=== PATIENT | female | born 1975 | race African-American/Black ===

== ENCOUNTER 2017-12-16 23:59 | Emergency (ER) | payer OTHER ==
[2017-12-17 00:22] VITALS: BMI 34.2
--- NOTE | 2017-12-17 00:23 | PDOC ---
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 The patient states the symptoms presented 1 day prior following the intake of steak and later on Mongolian food. The patient report having episodes of nonbilious-bloody vomiting. The patient reports an additional complaint of loose stool, denies diarrhea, dysuria, fever, chills, vaginal bleeding or discharge, or fluid loose. The patient reports having a cerclage done at [facility] 2 weeks prior, states the procedure was done on the inside. The patient reports an additional concern of an occasional cough, indicates its secondary to her asthma, patient reports being noncompliant inhalers. Allergies: tetracycline Social history: No past or present use of tobacco, alcohol or recreational drug use reported. Surgical history: Cerclage (2 weeks ago @ [facility]) PCP: Jenni Hassan MD <Awa Leon - Last Filed: 12/17/17 01:13> <Liliana Zavaleta - Last Filed: 12/17/17 02:20> - General Chief Complaint: Pain Stated Complaint: 16 WEEKS /ABD PAIN Time Seen by Provider: 12/17/17 00:23 Past History <Awa Leon - Last Filed: 12/17/17 01:13> - Past Medical History Asthma: Yes Cardiac Disorders: No COPD: No DVT: No Diabetes: No HTN: No Hypercholesterolemia: Yes - Immunization History Immunization Up to Date: Yes - Suicide/Smoking/Psychosocial Hx Smoking History: Never smoked Have you smoked in the past 12 months: No Information on smoking cessation initiated: No Hx Alcohol Use: No Drug/Substance Use Hx: No <Liliana Zavaleta - Last Filed: 12/17/17 02:20> - Past Medical History Allergies/Adverse Reactions: Allergies Allergy/AdvReac Type Severity Reaction Status Date / Time tetracycline AdvReac Intermediate Verified 12/17/17 01:03 Home Medications: Ambulatory Orders NK [No Known Home Medication] 11/03/17 Review of Systems - Review of Systems Able to Perform ROS?: Yes Comments:: 12/17/17 00:54 GENERAL/CONSTITUTIONAL: No fever or chills. No weakness. HEAD, EYES, EARS, NOSE AND THROAT: No change in vision. No ear pain or discharge. No sore throat. CARDIOVASCULAR: No chest pain or shortness of breath. RESPIRATORY: (+) cough. No wheezing, or hemoptysis. GASTROINTESTINAL: (+) R. flank pain that radiates to the lower abdomen. (+) Nausea and vomiting. No diarrhea or constipation. GENITOURINARY: No dysuria, frequency, or change in urination. MUSCULOSKELETAL: No joint or muscle swelling or pain. No neck or back pain. SKIN: No rash NEUROLOGIC: No headache, vertigo, loss of consciousness, or change in strength/ sensation. ENDOCRINE: No increased thirst. No abnormal weight change. HEMATOLOGIC/LYMPHATIC: No anemia, easy bleeding, or history of blood clots. ALLERGIC/IMMUNOLOGIC: No hives or skin allergy. <Awa Leon - Last Filed: 12/17/17 01:13> *Physical Exam - Vital Signs Last Vital Signs Temp Pulse Resp BP Pulse Ox 98.8 F 100 H 18 140/69 99 12/17/17 00:13 12/17/17 00:13 12/17/17 00:13 12/17/17 00:13 12/17/17 00:13 - Physical Exam Comments: 12/17/17 00:54 GENERAL: Little disheveled appearing. Awake, alert, and fully oriented, in no acute distress HEAD: No signs of trauma EYES: PERRLA, EOMI, sclera anicteric, conjunctiva clear ENT: Auricles normal inspection, hearing grossly normal, nares patent, oropharynx clear without exudates. Moist mucosa NECK: Normal ROM, supple, no lymphadenopathy, JVD, or masses LUNGS: Breath sounds equal, clear to auscultation bilaterally. No wheezes, and no crackles HEART: (+) Tackycardic. normal S1 and S2, no murmurs, rubs or gallops ABDOMEN: Gravid below the umbilicus. Obese. Soft, nontender, normoactive bowel sounds. No guarding, no rebound. No masses EXTREMITIES: No edema in the legs. Normal range of motion, no edema. No clubbing or cyanosis. No cords, erythema, or tenderness NEUROLOGICAL: Cranial nerves II through XII grossly intact. Normal speech. SKIN: Warm, Dry, normal turgor, no rashes or lesions noted. <Awa Leon - Last Filed: 12/17/17 01:13> - Vital Signs Last Vital Signs Temp Pulse Resp BP Pulse Ox 98.8 F 100 H 18 140/69 99 12/17/17 00:13 12/17/17 00:13 12/17/17 00:13 12/17/17 00:13 12/17/17 00:13 <Liliana Zavaleta - Last Filed: 12/17/17 02:20> ED Treatment Course - LABORATORY CBC & Chemistry Diagram: 12/17/17 01:45 12/17/17 01:45 <Liliana Zavaleta - Last Filed: 12/17/17 02:20> Medical Decision Making - Medical Decision Making 12/17/17 00:41 a/p: 42yo female with n/v since yesterday after eating steak and then taiwanese food -pt is 2 weeks s/p cerclage placement at [facility] -pt states abd cramping assoc with n/v -no diarrhea -pt is around 16 weeks preg -pt denies vag bleeding/loss of fluid/urinary complaints -no f/c -suspect gastroenteritis -will send labs, ua, ob ultrasound -will give ivf hydration, zofran -will monitor and reassess 12/17/17 01:33 OB ultrasound: cervix 4.5cm in length, IUP at 16weeks 5 days, FHR 133, normal amniotic fluid, anterior placenta without previa or abruption 12/17/17 01:45 pt updated on the ultrasound results 12/17/17 02:19 pt pending labs - signed out to the oncoming ED physician pending further eval and a po challenge <Liliana Zavaleta - Last Filed: 12/17/17 02:20> *DC/Admit/Observation/Transfer - Attestations Scribe Attestion: 12/17/17 00:55 Documentation prepared by Awa Leon, acting as manager medical writing for Liliana Zavaleta DO. <Awa Leon - Last Filed: 12/17/17 01:13> - Discharge Dispostion Decision to Admit order: No - Attestations Physician Attestion: 12/17/17 02:20 I, Dr. Liliana Zavaleta, DO, attest that this document has been prepared under my direction and personally reviewed by me in its entirety. I further attest, that it accurately reflects all work, treatment, procedures and medical decision -making performed by me. <Liliana Zavaleta - Last Filed: 12/17/17 02:20> Diagnosis at time of Disposition: Nausea and vomiting during - Discharge Dispostion Condition at time of disposition: Stable - Referrals Referrals: Jenni Mckeon MD [Primary Care Provider] - - Patient Instructions - Post Discharge Activity
[2017-12-17] MEDS ORDERED: ONDANSETRON 4 MG/2 ML VIAL IVPUSH ONE (00:39)
[2017-12-17] MEDS ORDERED: SODIUM CHLORIDE 0.9% 1000 ML INFUS.BAG IV ONE (00:39)
[2017-12-17] MEDS ORDERED: ONDANSETRON 4 MG/2 ML VIAL ONE (01:46)
[2017-12-17 01:51] LABS: BASO % 1.5 % (0-2.0); EOS % 1.2 % (0-4.5); HEMOGLOBIN 10.3 GM/dL (10.7-15.3); LYMPH % 24.3 % (8-40); MCH 32.7 pg (25.7-33.7); MCHC 34.4 g/dl (32.0-36.0); MEAN CELL VOLUME 95.1 fl (80-96); MONO % 5.8 % (3.8-10.2); NEUT % 67.2 % (42.8-82.8); PLATELET COUNT 222 K/MM3 (134-434); RBC 3.16 M/mm3 (3.60-5.2); RDW 13.7 % (11.6-15.6); WHITE BLOOD COUNT 11.4 K/mm3 (4.0-10.0)
[2017-12-17 02:13] LABS: ALBUMIN 3.1 g/dl (3.4-5.0); ALK PHOS 56 U/L (45-117); ANION GAP 8 MMOL/L (8-16); BILIRUBIN,TOTAL 0.4 mg/dL (0.2-1); BLOOD UREA NITROGEN 13 mg/dL (7-18); CALCIUM 8.7 mg/dL (8.5-10.1); CHLORIDE 109 mmol/L (98-107); CO2 21 mmol/L (21-32); CREATININE 0.5 mg/dL (0.55-1.3); GLUCOSE,RANDOM 76 mg/dL (74-106); POTASSIUM 3.6 mmol/L (3.5-5.1); SGOT/AST 15 U/L (15-37); SGPT/ALT 14 U/L (13-61); SODIUM 139 mmol/L (136-145); TOT PROT 6.4 g/dl (6.4-8.2)
[2017-12-17 02:32] LABS: URINE APPEARANCE CLEAR; URINE BILIRUBIN NEGATIVE (<2.0 mg/dL); URINE COLOR STRAW; URINE GLUCOSE (UA) NEGATIVE (NEGATIVE); URINE KETONE TRACE (NEGATIVE); URINE LEUK ESTERASE NEGATIVE (NEGATIVE); URINE NITRITE NEGATIVE (NEGATIVE); URINE PROTEIN NEGATIVE (NEGATIVE); URINE UROBILINOGEN NEGATIVE mg/dL (0.2-1.0)
--- NOTE | 2017-12-17 03:13 | PDOC ---
*Physical Exam - Vital Signs Last Vital Signs Temp Pulse Resp BP Pulse Ox 98.8 F 100 H 18 140/69 99 12/17/17 00:13 12/17/17 00:13 12/17/17 00:13 12/17/17 00:13 12/17/17 00:13 ED Treatment Course - LABORATORY CBC & Chemistry Diagram: 12/17/17 01:45 12/17/17 01:45 - ADDITIONAL ORDERS Additional order review: Laboratory Results 12/17/17 12/17/17 02:15 01:45 Sodium 139 Potassium 3.6 Chloride 109 H Carbon Dioxide 21 Anion Gap 8 BUN 13 Creatinine 0.5 L Creat Clearance w eGFR > 60 Random Glucose 76 Calcium 8.7 Total Bilirubin 0.4 AST 15 ALT 14 Alkaline Phosphatase 56 Total Protein 6.4 Albumin 3.1 L Urine Color Straw Urine Appearance Clear Urine pH 5.0 Ur Specific [place] 1.010 Urine Protein Negative Urine Glucose (UA) Negative Urine Ketones Trace H Urine Blood Negative Urine Nitrite Negative Urine Bilirubin Negative Urine Urobilinogen Negative Ur Leukocyte Esterase Negative 12/17/17 01:45 RBC 3.16 L MCV 95.1 MCHC 34.4 RDW 13.7 MPV 9.0 Neutrophils % 67.2 D Lymphocytes % 24.3 D Monocytes % 5.8 Eosinophils % 1.2 Basophils % 1.5 D - Medications Given in the ED: ED Medications Discontinued Medications Generic Name Dose Route Start Last Admin Trade Name Freq PRN Reason Stop Dose Admin Ondansetron HCl 4 mg 12/17/17 00:39 12/17/17 01:51 Zofran Injection IVPUSH 12/17/17 00:40 4 mg ONCE ONE Administration Sodium Chloride 1,000 ml 12/17/17 00:39 12/17/17 01:51 Normal Saline - IV 12/17/17 00:40 1,000 ml ONCE ONE Administration Medical Decision Making - Medical Decision Making 12/17/17 03:08 42yo female with n/v since yesterday after eating steak and then wolof food. - OB US unremarkable - Labs wnl, UA negative Pt reassessed - passed PO challenge - ate several crackers and juice without vomiting. Pt states she feels much better now, would like to go home. Initial BP slightly elevated 140 systolic, repeat vitals improved. Pt is well appearing, with normal vitals. Clinically stable for DC at this time. I discussed the physical exam findings, ancillary test results and final diagnoses with the patient. I answered all of the patient's questions. The patient was satisfied with the care received and felt comfortable with the discharge plan and treatment plan. The patient agrees to follow up with the primary care physician within 24-72 hours. *DC/Admit/Observation/Transfer Diagnosis at time of Disposition: Nausea and vomiting during - Discharge Dispostion Disposition: HOME Condition at time of disposition: Stable - Referrals Referrals: Jenni Mckeon MD [Primary Care Provider] - - Patient Instructions Printed Discharge Instructions: Nausea and Vomiting-Adult Additional Instructions: Drink plenty of fluids to stay hydrated. Follow up with your OB at [facility] this week. If you experience worsening nausea, vomiting, diarrhea, abdominal pain, fevers, or any other concerning symptoms, return to the ER immediately. - Post Discharge Activity - Attestations Physician Attestion: 12/17/17 03:13 I, Dr. Marlon Joshua MD, attest that this document has been prepared under my direction and personally reviewed by me in its entirety. I further attest, that it accurately reflects all work, treatment, procedures and medical decision -making performed by me.
[2017-12-17 03:29] VITALS: BP 103/55; PULSE 98; TEMP 98.7
== END 2017-12-17 04:33 | disposition home or self-care (01) ==
LOC: JER 23:59
PROC: 3E033GC Introduction of Other Therapeutic Substance into Peripheral Vein, Percutaneous Approach (ICD-10-PCS; principal; 2017-12-16)
DX: O26.892 Other specified pregnancy related conditions, second trimester (principal); R11.2 Nausea with vomiting, unspecified; R10.31 Right lower quadrant pain; Z3A.16 16 weeks gestation of pregnancy
CPT/HCPCS: 36415; 76815; 80053; 81003; 85025; 99282-25; J7030

== ENCOUNTER 2017-12-19 07:37 | Emergency (ER) | payer OTHER ==
[2017-12-19 07:57] VITALS: BMI 33.8
[2017-12-19] MEDS ORDERED: ACETAMINOPHEN 1000 MG/100 ML VIAL (NON FORMULARY) IVPB ONE (08:50)
[2017-12-19 09:01] LABS: BASO % 0.8 % (0-2.0); EOS % 1.4 % (0-4.5); HEMATOCRIT 31.4 % (32.4-45.2); HEMOGLOBIN 10.8 GM/dL (10.7-15.3); MCH 32.9 pg (25.7-33.7); MCHC 34.5 g/dl (32.0-36.0); MEAN CELL VOLUME 95.5 fl (80-96); MEAN PLT VOLUME 9.2 fl (7.5-11.1); MONO % 5.8 % (3.8-10.2); PLATELET COUNT 217 K/MM3 (134-434); RBC 3.29 M/mm3 (3.60-5.2); RDW 13.6 % (11.6-15.6); WHITE BLOOD COUNT 10.1 K/mm3 (4.0-10.0)
[2017-12-19] MEDS ORDERED: ACETAMINOPHEN 325 MG TABLET (FP) ONE (09:01)
[2017-12-19] MEDS ORDERED: ACETAMINOPHEN INJECTION 100 ML IVPB ONE (09:04)
[2017-12-19 09:05] LABS: URINE APPEARANCE CLEAR; URINE BILIRUBIN NEGATIVE (<2.0 mg/dL); URINE COLOR STRAW; URINE GLUCOSE (UA) NEGATIVE (NEGATIVE); URINE KETONE TRACE (NEGATIVE); URINE LEUK ESTERASE NEGATIVE (NEGATIVE); URINE NITRITE NEGATIVE (NEGATIVE); URINE PROTEIN NEGATIVE (NEGATIVE); URINE UROBILINOGEN NEGATIVE mg/dL (0.2-1.0)
[2017-12-19] MEDS ORDERED: METOCLOPRAMIDE HCL INJECTION 10 MG/2 ML VIAL IVPUSH ONE (09:14)
[2017-12-19] MEDS ORDERED: METOCLOPRAMIDE HCL INJECTION 10 MG/2 ML VIAL ONE (09:15)
[2017-12-19] MEDS ORDERED: SODIUM CHLORIDE 0.9% 500 ML INFUS.BAG IV ONE (09:24)
[2017-12-19 09:31] LABS: ALBUMIN 3.2 g/dl (3.4-5.0); ALK PHOS 55 U/L (45-117); ANION GAP 9 MMOL/L (8-16); BILIRUBIN,TOTAL 0.2 mg/dL (0.2-1); BLOOD UREA NITROGEN 11 mg/dL (7-18); CALCIUM 9.4 mg/dL (8.5-10.1); CHLORIDE 108 mmol/L (98-107); CO2 22 mmol/L (21-32); CREATININE 0.6 mg/dL (0.55-1.3); GLUCOSE,RANDOM 90 mg/dL (74-106); POTASSIUM 3.4 mmol/L (3.5-5.1); SGOT/AST 13 U/L (15-37); SGPT/ALT 13 U/L (13-61); SODIUM 139 mmol/L (136-145); TOT PROT 6.4 g/dl (6.4-8.2)
[2017-12-19] MEDS ORDERED: POTASSIUM CHLORIDE TABS 20 MEQ TABLET.ER (FP) PO ONE ×2 (10:11→10:44)
--- NOTE | 2017-12-19 10:20 | PDOC ---
History of Present Illness - General History Source: Patient Exam Limitations: No Limitations - History of Present Illness Initial Comments: 12/19/17 10:28 Ms. 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 The patient states around 7:00 am today, the patient was voiding when she had a single episode of watery discharge, denies seeing blood. The patient states the discharge was similar to prior water breaks. The patient states following the episode, the patient started to have pain to the lower abdomen, states she felt a shift in her uterus, states the pain dull is quality with a 7/10 severity. The patient reports associated symptoms of nausea and several episodes of nonbilious-bloody emesis. The patient reports an additional complaint of white discharge from the vagina, denies itchiness. Patient denies this episode is similar to prior miscarriages. Denies contraction. Patient states she is compliant with her medication. Allergies: tetracycline Social history: No past or present use of tobacco, alcohol or recreational drug use reported. Surgical history: Cerclage (2 weeks ago @ [facility]) PCP: Jenni Hassan MD [facility]: Dr. Adama Sanchez MD. <Awa Leon - Last Filed: 12/19/17 10:28> - General History Source: Patient Exam Limitations: No Limitations <Leona Gonzalez - Last Filed: 12/19/17 12:02> - General Chief Complaint: Pain Stated Complaint: MISCARRIAGE Time Seen by Provider: 12/19/17 08:42 Past History <Awa Leon - Last Filed: 12/19/17 10:28> - Past Medical History Asthma: Yes Cardiac Disorders: No COPD: No DVT: No Diabetes: No HTN: No Hypercholesterolemia: Yes - Reproductive History Is Patient Now?: No (#): 13 Para: 2 Therapeutic (s) & number: No - Immunization History Immunization Up to Date: Yes - Suicide/Smoking/Psychosocial Hx Smoking History: Never smoked Have you smoked in the past 12 months: No Number of Cigarettes Smoked Daily: 10 Information on smoking cessation initiated: No Hx Alcohol Use: No Drug/Substance Use Hx: No Substance Use Type: None <LisaLeona Candie - Last Filed: 12/19/17 12:02> - Past Medical History Allergies/Adverse Reactions: Allergies Allergy/AdvReac Type Severity Reaction Status Date / Time tetracycline AdvReac Intermediate Verified 12/19/17 07:39 Home Medications: Ambulatory Orders Doxylamine Succinate/Vit B6 [[place]andy [place] 10-10 mg Tablet] 1 each PO DAILY PRN # 15 tablet. 12/19/17 Review of Systems - Review of Systems Able to Perform ROS?: Yes Comments:: 12/19/17 10:28 GENERAL/CONSTITUTIONAL: No fever or chills. No weakness. no sweats. HEAD, EYES, EARS, NOSE AND THROAT: No congestion. CARDIOVASCULAR: No chest pain or palpitations, syncope or edema. RESPIRATORY: No SOB, cough GASTROINTESTINAL (+) nausea and vomiting. (+) abdominal pain. No diarrhea or constipation. No bloody stools. GENITOURINARY: (+)Vaginal discharge. No VB. no vaginal itch. No hematuria, dysuria, frequency, urgency or other changes. MUSCULOSKELETAL: No joint or muscle swelling or pain. No neck or back pain. SKIN: No rash or changes in skin color or lesions. NEUROLOGIC: No headache, vertigo, loss of consciousness. HEMATOLOGIC/LYMPHATIC: No anemia, easy bruising/bleeding, or history of blood clots. ALLERGIC/IMMUNOLOGIC: No allergies All other systems reviewed and negative, or as documented in HPI. <Awa Leon - Last Filed: 12/19/17 10:28> *Physical Exam - Vital Signs Last Vital Signs Temp Pulse Resp BP Pulse Ox 98.6 F 82 20 132/68 100 12/19/17 07:40 12/19/17 09:26 12/19/17 09:26 12/19/17 09:26 12/19/17 09:26 - Physical Exam Comments: 12/19/17 10:29 General: Well appearing, awake and alert, NAD. HEENT: NCAT, PERRL, EOMI, clear conjunctiva, anicteric, moist mucus membranes, clear oropharynx, no oral lesions.. Neck: neck supple, FROM Resp: CTAB, normal and even respirations, no respiratory distress CVS: RRR, no murmurs, 2+ peripheral pulses throughout, no peripheral edema Abdomen: (+) Diffuse tenderness. Gravid abdomen. soft, no peritoneal signs. Female : (+)Gravid Uterus. Cervix is smooth and soft, pink with cerclage in view. Moderate clear discharge in vaginal vault. Soft cervix to palpation, closed os. Back: nontender, normal inspection and ROM. no CVAT MSK: no edema, SERRANO x4, ROM intact. No clubbing or cyanosis. normal bulk and tone. Neuro: alert, oriented appropriately Skin: warm and well perfused, cap refill <2 sec, normal color <Awa Leon - Last Filed: 12/19/17 10:28> - Vital Signs Last Vital Signs Temp Pulse Resp BP Pulse Ox 98.6 F 82 20 132/68 100 12/19/17 07:40 12/19/17 09:26 12/19/17 09:26 12/19/17 09:26 12/19/17 09:26 <Leona Gonzalez - Last Filed: 12/19/17 12:02> ED Treatment Course - LABORATORY CBC & Chemistry Diagram: 12/19/17 08:39 12/19/17 08:39 - ADDITIONAL ORDERS Additional order review: Laboratory Results 12/19/17 12/19/17 12/19/17 08:47 08:39 08:39 Sodium Potassium Chloride Carbon Dioxide Anion Gap BUN Creatinine Creat Clearance w eGFR Random Glucose Calcium Total Bilirubin AST ALT Alkaline Phosphatase Total Protein Albumin Beta HCG, Quant 80867.9 Urine Color Straw Urine Appearance Clear Urine pH 6.0 Ur Specific [place] 1.006 Urine Protein Negative Urine Glucose (UA) Negative Urine Ketones Trace H Urine Blood Negative Urine Nitrite Negative Urine Bilirubin Negative Urine Urobilinogen Negative Ur Leukocyte Esterase Negative Blood Type B NEGATIVE Antibody Screen Positive H 12/19/17 08:39 Sodium 139 Potassium 3.4 L Chloride 108 H Carbon Dioxide 22 Anion Gap 9 BUN 11 Creatinine 0.6 Creat Clearance w eGFR > 60 Random Glucose 90 Calcium 9.4 Total Bilirubin 0.2 AST 13 L ALT 13 Alkaline Phosphatase 55 Total Protein 6.4 Albumin 3.2 L Beta HCG, Quant Urine Color Urine Appearance Urine pH Ur Specific [place] Urine Protein Urine Glucose (UA) Urine Ketones Urine Blood Urine Nitrite Urine Bilirubin Urine Urobilinogen Ur Leukocyte Esterase Blood Type Antibody Screen 12/19/17 08:39 RBC 3.29 L MCV 95.5 MCHC 34.5 RDW 13.6 MPV 9.2 Neutrophils % 64.0 Lymphocytes % 28.0 Monocytes % 5.8 Eosinophils % 1.4 Basophils % 0.8 - Medications Given in the ED: ED Medications Discontinued Medications Generic Name Dose Route Start Last Admin Trade Name Olman PRN Reason Stop Dose Admin Acetaminophen 1,000 mg 12/19/17 08:50 12/19/17 09:05 Ofirmev Injection - IVPB 12/19/17 08:51 1,000 mg ONCE ONE Administration Metoclopramide HCl 10 mg 12/19/17 09:14 12/19/17 09:21 Reglan Injection - IVPUSH 12/19/17 09:15 10 mg ONCE ONE Administration Sodium Chloride 1,000 ml 12/19/17 09:24 12/19/17 09:20 Normal Saline - IV 12/19/17 09:25 1,000 ml ONCE ONE Administration <Awa Leon - Last Filed: 12/19/17 10:28> - LABORATORY CBC & Chemistry Diagram: 12/19/17 08:39 12/19/17 08:39 - ADDITIONAL ORDERS Additional order review: Laboratory Results 12/19/17 12/19/17 12/19/17 08:47 08:39 08:39 Sodium 139 Potassium 3.4 L Chloride 108 H Carbon Dioxide 22 Anion Gap 9 BUN 11 Creatinine 0.6 Creat Clearance w eGFR > 60 Random Glucose 90 Calcium 9.4 Total Bilirubin 0.2 AST 13 L ALT 13 Alkaline Phosphatase 55 Total Protein 6.4 Albumin 3.2 L Urine Color Straw Urine Appearance Clear Urine pH 6.0 Ur Specific [place] 1.006 Urine Protein Negative Urine Glucose (UA) Negative Urine Ketones Trace H Urine Blood Negative Urine Nitrite Negative Urine Bilirubin Negative Urine Urobilinogen Negative Ur Leukocyte Esterase Negative Blood Type B NEGATIVE Antibody Screen Positive H 12/19/17 08:39 RBC 3.29 L MCV 95.5 MCHC 34.5 RDW 13.6 MPV 9.2 Neutrophils % 64.0 Lymphocytes % 28.0 Monocytes % 5.8 Eosinophils % 1.4 Basophils % 0.8 - RADIOLOGY Radiology Studies Ordered: Category Date Time Status TRANSVAGINAL US PREG [US] Stat Ultrasound 12/19/17 09:03 Ordered - Medications Given in the ED: ED Medications Discontinued Medications Generic Name Dose Route Start Last Admin Trade Name Olman PRN Reason Stop Dose Admin Acetaminophen 1,000 mg 12/19/17 08:50 12/19/17 09:05 Ofirmev Injection - IVPB 12/19/17 08:51 1,000 mg ONCE ONE Administration Metoclopramide HCl 10 mg 12/19/17 09:14 12/19/17 09:21 Reglan Injection - IVPUSH 12/19/17 09:15 10 mg ONCE ONE Administration Sodium Chloride 1,000 ml 12/19/17 09:24 12/19/17 09:20 Normal Saline - IV 12/19/17 09:25 1,000 ml ONCE ONE Administration <GonzalezLeona Lisapatoluna - Last Filed: 12/19/17 12:02> Medical Decision Making - Medical Decision Making 12/19/17 11:51 Anthony 42 YOF currently, 5 months , A(5 abortions, 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 cerclage placed 2 weeks ago with her OB at [facility].. vitals wnl. no fever, reassuring. labs and lytes wnl, UA neg for infection/ketones. beta hcg >15,000, with US revealing IUP at 18 wks, anterior placenta, FHR 163 bpm, no ff. cervical length of 4.2cm no comment on ÁNGELA, but fluid in amnion sac visualized. no VB here, remains well. pain controlled with tylenol, reglan, IVF. declined potassiium tab for mild hypo-K. no further leakage here. ambulatory. abdomen soft, gravid, but benign on reexamination rhogam given for Rh neg status, has received it previously. spoke with Dr. Arita, stone gluer for Dr Sanchez OB - discussed case, results and reassuring US results, which is provided to the patient. will arrange for urgent outpatient followup appointment, repeat US check.. return precautions discussed, including worsening AP, dehydration, vomiting, bleeding, signs of infection such as fever, odorous vaginal discharge or other worsening sx. pt verbalized understanding of results, impression and plan. pelvic and bed rest advised, tylenol for pain, return precautions as above. Rx diclegis PRN nausea/vomiting in , hydration and PO intake encouraged. work note given. Pt informed of my clinical impression, treatment recommendations and disposition plan. All questions answered to patient's satisfaction and expressed understanding and comfort with this. Reasons for returning to the ED sooner discussed with the patient otherwise, follow up with primary care physician. At the time of discharge, the patient is alert, clinically improved, tolerating po and verbalizes understanding of instructions. extensive counseling and updates above as discussed.. 12/19/17 12:02 <Leona Gonzalez - Last Filed: 12/19/17 12:02> *DC/Admit/Observation/Transfer - Attestations Scribe Attestion: 12/19/17 10:29 Documentation prepared by Awa Leon, acting as nuclear medicine medical director for Leona Gonzalez MD. <Awa Leon - Last Filed: 12/19/17 10:28> - Discharge Dispostion Decision to Admit order: No - Attestations Physician Attestion: 12/19/17 10:28 I, Leona Gonzalez MD, attest that this document has been prepared under my direction and personally reviewed by me in its entirety. I further attest, that it accurately reflects all work, treatment, procedures and medical decision -making performed by me. <Leona Gonzalez - Last Filed: 12/19/17 12:02> Diagnosis at time of Disposition: Abdominal pain affecting , Second trimester - Discharge Dispostion Disposition: HOME Condition at time of disposition: Stable - Prescriptions Prescriptions: Doxylamine Succinate/Vit B6 [Diclegis Dr 10-10 mg Tablet] 1 each PO DAILY PRN # 15 tablet.dr PRN Reason: Nausea - Referrals Referrals: Chinmay Jain MD [Staff Physician] - - Patient Instructions Printed Discharge Instructions: Diet, DI for Threatened Additional Instructions: please follow with Dr. Sanchez at [facility] this week, follow up in 2-3 days for reevaluation your ultrasound revealed an intrauterine at 18 weeks with cervical length of 4.2cm if worsening symptoms, return sooner such as vaginal bleeding, dehydration, abdominal pain, vomiting or inability to tolerate intake, fevers or signs of infection, smelly discharge or odor. may take diclegis for your nausea in as needed. stay hydrated, rest in bed avoid strenuous activity. - Post Discharge Activity Forms/Work/School Notes: Back to Work
[2017-12-19] MEDS ORDERED: RHO(D) IMMUNE GLOBULIN 1,500 UNIT DISP.SYRIN IM ONE (11:00)
[2017-12-19 11:54] VITALS: BP 122/68; PULSE 79; TEMP 98.3
== END 2017-12-19 12:23 | disposition home or self-care (01) ==
LOC: JER 07:37
PROC: 3E033GC Introduction of Other Therapeutic Substance into Peripheral Vein, Percutaneous Approach (ICD-10-PCS; principal; 2017-12-19)
PROC: 3E033NZ Introduction of Analgesics, Hypnotics, Sedatives into Peripheral Vein, Percutaneous Approach (ICD-10-PCS; 2017-12-19)
DX: O26.892 Other specified pregnancy related conditions, second trimester (principal); R10.9 Unspecified abdominal pain; E87.6 Hypokalemia; Z3A.20 20 weeks gestation of pregnancy
CPT/HCPCS: 36415; 76815-TC; 80053; 81003; 84702; 85025; 86850; 86870; 86900; 86901; 86902; 86999; 87086; 96374; 96375; 99283-25; J0131; J1561

== ENCOUNTER 2018-03-31 01:50 | Emergency (ER) | payer OTHER ==
[2018-03-31 02:05] VITALS: BP 116/84; PULSE 88; TEMP 97.7; BMI 32.0
--- NOTE | 2018-03-31 04:09 | PDOC ---
History of Present Illness - General Chief Complaint: Head/Neck problem Stated Complaint: PAIN, 32 WKS Time Seen by Provider: 03/31/18 04:09 History Source: Patient - History of Present Illness Initial Comments: 03/31/18 05:22 43 week 43-year-old female G 13 P2 7 by [employer] [facility] from [facility] for evaluation of bilateral shoulder pain with neck stiffness. Patient reports that she received RhoGAM injection 8 days ago since then she's been having shoulder pain worse with movement. Denies fevers/chills, abdominal pain, vaginal bleeding, vaginal discharge. Past History - Past Medical History Allergies/Adverse Reactions: Allergies Allergy/AdvReac Type Severity Reaction Status Date / Time doxycycline Allergy Rash Verified 03/31/18 02:06 Home Medications: Ambulatory Orders Albuterol Sulfate Inhaler - [Ventolin HFA Inhaler -] 1 PRN 03/30/18 Ferrous Sulfate 325 mg PO BID 03/30/18 Vitamins (Sjr) - 1 tab PO DAILY 03/30/18 Acetaminophen [Tylenol] 975 mg PO TID PRN #30 capsule 03/31/18 Asthma: Yes Cardiac Disorders: No COPD: No DVT: No Diabetes: No HTN: No Hypercholesterolemia: Yes - Reproductive History (#): 13 Para: 2 Therapeutic (s) & number: No - Immunization History Immunization Up to Date: Yes - Suicide/Smoking/Psychosocial Hx Smoking History: Never smoked Have you smoked in the past 12 months: No Number of Cigarettes Smoked Daily: 10 Information on smoking cessation initiated: No Hx Alcohol Use: No Drug/Substance Use Hx: No Substance Use Type: None *Physical Exam - Vital Signs Last Vital Signs Temp Pulse Resp BP Pulse Ox 97.7 F 88 16 116/84 97 03/31/18 01:50 03/31/18 01:50 03/31/18 01:50 03/31/18 01:50 03/31/18 01:50 - Physical Exam General Appearance: Yes: Appropriately Dressed Neck: positive: Rigidity (to the left Tender to t), Tender lateral, Other (no nuchal rigidity). negative: Lymphadenopathy (R), Lymphadenopathy (L) Moderate Sedation - Procedure Monitoring Vital Signs: Procedure Monitoring Vital Signs Temperature 97.7 F 03/31/18 01:50 Pulse Rate 88 03/31/18 01:50 Respiratory Rate 16 03/31/18 01:50 Blood Pressure 116/84 03/31/18 01:50 O2 Sat by Pulse Oximetry (%) 97 03/31/18 01:50 *DC/Admit/Observation/Transfer Diagnosis at time of Disposition: Torticollis, acute - Discharge Dispostion Disposition: HOME Condition at time of disposition: Fair - Prescriptions Prescriptions: Acetaminophen [Tylenol] 975 mg PO TID PRN #30 capsule PRN Reason: Pain - Referrals Referrals: Dario Trevino MD [Primary Care Provider] - - Patient Instructions Printed Discharge Instructions: Torticollis Additional Instructions: apply ice/ HEAT TO THE Area. You may take Tylenol. May apply lidocaine [id number] cream to the area for local pain relief - Post Discharge Activity Forms/Work/School Notes: Back to Work
[2018-03-31] MEDS ORDERED: LIDOCAINE 5% TOPICAL PATCH TP ONE (04:30)
[2018-03-31] MEDS ORDERED: ACETAMINOPHEN 325 MG TABLET (FP) PO ONE (04:30)
[2018-03-31] MEDS ORDERED: LIDOCAINE PATCH REMOVAL MC SCH (22:00)
== END 2018-03-31 06:45 | disposition home or self-care (01) ==
LOC: JER 01:50
DX: O26.893 Other specified pregnancy related conditions, third trimester (principal); O99.89 Other specified diseases and conditions complicating pregnancy, childbirth and the puerperium; M43.6 Torticollis; Z3A.32 32 weeks gestation of pregnancy
CPT/HCPCS: 99281-25